=== PATIENT | male | born 1930 | race Caucasian/White ===

== ENCOUNTER → 2017-03-21 | Outpatient (CLI) | payer MEDICARE ==
[2016-10-02 11:07] VITALS: BP 151/80
[~2017-03-21] MED LIST: ALEN70TA5 PO; AMLO10TA4 PO; AMLODIPINE PO; ASPI-630 PO; ATORVASTATIN CA80 MG PO; BUPR100T8 PO; CALC-98 PO; CEFU250T PO; CITA10TA4 PO; FLUD0.1T PO; FOLI1TAB16 PO; ISOS30TA4 PO; LORA0.5T96 PO; LORA10TA3 PO; MECL25TA PO; MECL25TA3 PO; MELA3TAB2 PO; MIDO5TAB PO; MULT-279 PO; NITR0.4T SL; OMEG500C PO; TAMS0.4C2 PO; TAMS0.4C97 PO
--- NOTE | 2017-03-21 16:33 | RAD ---
Indication lower abdominal pain. Chronic. Pain for months. Axial images through the abdomen and pelvis were obtained. Study is limited. No IV or gastrointestinal contrast was administered. Comparison is made to a similar examination 06/25/2016. Sparse that There is some hyperexpansion of the visualized lung hernandez. There is an oval parenchymal opacity in the right lower lobe unchanged relative to the previous exam. An acute or new finding at either lung base is not seen. The liver and spleen appear unremarkable. The gallbladder appears grossly normal. Known parapelvic cysts associated with both kidneys is noted. Small right renal calculus is noted appearing similar. An acute finding in the abdomen is not seen. Heavy atherosclerotic plaquing of the abdominal aorta is noted, similar. An acute finding in the abdomen is not seen. In the pelvis generalized enlargement of the prostate is again noted. Diffuse thickening of the urinary bladder wall compatible with a chronic outlet obstructive process or cystitis is again seen. No acute finding is seen in the pelvis. Occasional sclerotic foci are seen in visualized bony structures compatible with bone islands. The appearance is unchanged. Pars defect at L5 with minimal spondylolisthesis is noted. IMPRESSION: No acute finding seen in the abdomen or pelvis. There has not been a significant change when compared to the study 06/25/2016. Several chronic changes are noted. Unchanged oval parenchymal opacity in the right lower lobe relative to the previous exam PQRS Compliance Statement: One or more of the following individualized dose reduction techniques were utilized for this examination: 1. Automated exposure control 2. Adjustment of the mA and/or kV according to patient size 3. Use of iterative reconstruction technique
== END | disposition home or self-care (01) ==
LOC: CT 16:03
PROVIDERS: ATTEND Family Medicine
DX: R10.30 Lower abdominal pain, unspecified (principal); R91.8 Other nonspecific abnormal finding of lung field
CPT/HCPCS: 74176

== ENCOUNTER 2018-02-09 00:45 | Emergency (ER) | payer MEDICARE ==
[~2018-02-09] VITALS: Ht 179.1 cm; Wt 68.0 kg
[2018-02-09] MEDS ORDERED: THIAMINE 200 MG/2 ML VIAL. IV ONE (01:07)
[2018-02-09] MEDS ORDERED: FOLIC ACID 5 MG/ML SYRINGE for ER IV ONE (01:08)
[2018-02-09] MEDS ORDERED: MVI, ADULT NO.4 WITH VIT K 10 ML VIAL IV ONE (01:08)
--- NOTE | 2018-02-09 01:25 | PHYS DOC ---
Adult General Chief Complaint Chief Complaint: ALCOHOL INTOXICATION HPI HPI Patient is a 72-year-old male with unknown past medical history presents secondary to alcohol intoxication. EMS was called to come to his house because he was laying on the ground intoxicated, he was laying down next to his drink. There was no report of fall or trauma. No report of recent illnesses. Per EMS the patient and his had been drinking tonight. The did not come with the patient. History, ROS, physical exam limited secondary to intoxication Review of Systems Review of Systems ROS: Alcohol intoxication. Otherwise unable to obtain secondary to clinical condition Current Medications Current Medications Current Medications Medications (Trade) Dose Ordered Sig/Jones Start Time Stop Time Status Last Admin Dose Admin Folic Acid (FOLIC ACID SYRINGE for ER) 5 mg STK-MED ONCE 02/09/18 01:08 02/09/18 01:09 DC Multivitamins/ Minerals (Infuvite Adult) 10 ml STK-MED ONCE 02/09/18 01:08 02/09/18 01:09 DC Multivitamins/ Minerals 10 ml/ Folic Acid 1 mg/ Thiamine HCl 100 mg/Dextrose/ Lactated Ringer's 1,011.2 ml @ 1,000 mls/ hr 1X ONCE 02/09/18 01:30 02/09/18 02:30 Thiamine HCl 200 mg STK-MED ONCE 02/09/18 01:07 02/09/18 01:08 DC Allergies Allergies Allergies Coded Allergies Type Severity Reaction Last Updated Verified Unable to Assess 02/09/18 No Physical Exam Physical Exam Constitutional: Well developed, well nourished, mild distress, non-toxic appearance. [] HENT: Normocephalic, atraumatic, no signs of basilar skull fracture, bilateral external ears normal, oropharynx dry, no oral exudates, nose normal. [] Eyes: PERRLA, EOMI, conjunctiva normal, no discharge. [] Neck: Normal range of motion, no tenderness, supple, no stridor. Trachea midline , no midline tenderness to palpation, no step-offs Cardiovascular:Heart rate regular rhythm, no murmur, equal pulses, normal perfusion. Heart rate at the time of the examination is a 88. Tenderness to palpation left chest wall but no deformity or bruising or crepitus noted Lungs & Thorax: Bilateral breath sounds clear to auscultation, no tachypnea Abdomen: Bowel sounds normal, soft, no tenderness, no masses, no pulsatile masses. [] Skin: Warm, dry, no erythema, no rash. [] Back: No tenderness, no CVA tenderness. No step-offs Extremities: No tenderness, no DVT, ROM intact, no edema. [] Neurologic: Alert , normal motor function, , no focal deficits noted. [] Psychologic: Impaired by intoxication EKG EKG [] Radiology/Procedures Radiology/Procedures IMPRESSION: 1. Small chronic right subdural. 2. Focal hemorrhage or mass in the temporal lobe on the right. MRI would be of benefit. 3. Diffuse atrophy. 4. High density lesion at the quadrigeminal plate cistern on the right, again MRI would be of benefit. 5. Chronic sinusitis[] Course & Med Decision Making Course & Med Decision Making Pertinent Labs and Imaging studies reviewed. (See chart for details) [id number] Dr Hawk (trauma) paged to discuss findings on head CT [] Dragon Disclaimer Dragon Disclaimer This electronic medical record was generated, in whole or in part, using a voice recognition dictation system. Departure Departure: Impression: Primary Impression: Intracranial hemorrhage Additional Impressions: Alcohol intoxication Dehydration Disposition: XFER SHT-TRM HOSP Condition: STABLE Problem Qualifiers Shiva BRICE MD Feb 09, 2018 01:25
[2018-02-09] MEDS: MVI, ADULT NO.4 WITH VIT K 10 ML, FOLIC ACID 1 MG, THIAMINE 100 MG in IV DEXTROSE 5%-LA... IV ONE ×4 (01:30)
[2018-02-09 01:53] LABS: BASO # 0.1 x10^3/uL (0.0-0.2); BASO % 1 % (0-3); EOS # 0.2 x10^3/uL (0.0-0.7); EOS % 2 % (0-3); HEMATOCRIT 35.5 % (39.0-53.0); HEMOGLOBIN 12.3 g/dL (13.0-17.5); LYMPH # 1.4 x10^3/uL (1.0-4.8); LYMPH % 14 % (24-48); MEAN CORPUSCULAR HEMOGLOBIN 33 pg (25-35); MEAN CORPUSCULAR HGB CONC 35 g/dL (31-37); MEAN CORPUSCULAR VOLUME 96 fL (79-100); MONO # 0.6 x10^3/uL (0.0-1.1); MONO % 6 % (0-9); NEUT % 78 % (31-73); PLATELET COUNT 157 x10^3/uL (140-400); RED BLOOD COUNT 3.69 x10^6/uL (4.30-5.70); RED CELL DISTRIBUTION WIDTH 14.2 % (11.5-14.5); WHITE BLOOD COUNT 10.3 x10^3/uL (4.0-11.0)
[2018-02-09 01:55] LABS: ALBUMIN 3.4 g/dL (3.4-5.0); ALBUMIN/GLOBULIN RATIO 1.1 (1.0-1.7); CALCIUM 8.8 mg/dL (8.5-10.1); CREATININE 1.1 mg/dL (0.7-1.3); GFR 66.2; POTASSIUM 4.3 mmol/L (3.5-5.1); TOTAL BILIRUBIN 0.2 mg/dL (0.2-1.0); TOTAL PROTEIN 6.4 g/dL (6.4-8.2)
--- NOTE | 2018-02-09 02:03 | RAD ---
CT brain without contrast. CT cervical spine without contrast HISTORY: Fall, intoxicated, unable to give history CT scan of the brain was done without contrast. There is opacification of the right maxillary sinus with calcification which can be fungal or chronic sinusitis. There is also chronic changes in the ethmoid sinuses. There is atrophy. There is a mass or focal hemorrhage in the temporal lobe on the right side. Postcontrast study or MRI would be of benefit. Ventricles are normal in size. There is also is density at the quadrigeminal plate cistern just anterior to the superior cerebellum, etiology is not determined, MRI and and/or postcontrast CT could be of benefit. There is a small right chronic frontal subdural hematoma correlation with an old study could be of benefit. IMPRESSION: 1. Small chronic right subdural. 2. Focal hemorrhage or mass in the temporal lobe on the right. MRI would be of benefit. 3. Diffuse atrophy. 4. High density lesion at the quadrigeminal plate cistern on the right, again MRI would be of benefit. 5. Chronic sinusitis PQRS Compliance Statement: One or more of the following individualized dose reduction techniques were utilized for this examination: 1. Automated exposure control 2. Adjustment of the mA and/or kV according to patient size 3. Use of iterative reconstruction technique Electronically signed by: Mario Alberto Kc MD (02/09/2018 2:00 AM) [id number]
[2018-02-09 03:00] VITALS: BP 144/78
== END 2018-02-09 03:49 | disposition short-term general hospital (02) ==
LOC: ER 00:45 → EDBD 00:45 → MERGE 00:45 → ER 03:49
DX: I62.9 Nontraumatic intracranial hemorrhage, unspecified (principal); F10.129 Alcohol abuse with intoxication, unspecified; E86.0 Dehydration; J32.9 Chronic sinusitis, unspecified
CPT/HCPCS: 36415; 70450; 72125; 80053; 83735; 85025; 96365; 99285; G0480